=== PATIENT | female | born 1965 | race Two or more races ===

== ENCOUNTER 2020-01-20 01:50 | Emergency (ER) | payer BC ==
[~2020-01-20] VITALS: Ht 157.5 cm; Wt 82.1 kg
[2020-01-20] MEDS ORDERED: ASPIRIN 81 MG CHEW TAB PO ONE (03:00)
--- NOTE | 2020-01-20 03:09 | NUR ---
PT UP TO RESTROOM
[2020-01-20] MEDS ORDERED: ASPIRIN 81 MG CHEW TAB ONE (03:11)
--- NOTE | 2020-01-20 03:39 | Diagnostic Imaging Report ---
EXAMINATION: CXR 2 VIEW - HOPD INDICATION: ^SOB, UPPER CHEST/BACK PAIN COMPARISON: None FINDINGS: TUBES and LINES: None. LUNGS: Normal lung volumes. Lungs are clear. No consolidations. PLEURA: No pleural effusion or pneumothorax. HEART AND MEDIASTINUM: The cardiac silhouette within normal size limits. Right superior mediastinal soft tissue fullness with left tracheal deviation/compression BONES AND SOFT TISSUES: No acute osseous lesion. Soft tissues are unremarkable. UPPER ABDOMEN: No free air under the diaphragm. IMPRESSION: Right superior mediastinal soft tissue fullness with left tracheal deviation/compression, concerning for superior mediastinal mass, likely thyroid in origin/goiter. Signed by: Pancho Salinas DO on 01/20/2020 3:36 AM
--- NOTE | 2020-01-20 03:52 | NUR ---
PT RESTING QUIETLY WITH LIGHTS DIMMED.
--- NOTE | 2020-01-20 03:59 | NUR ---
INFORMED MD ALL TEST RESULTS COMPLETE AND PT WANTS TO GO HOME.
--- NOTE | 2020-01-20 04:02 | NUR ---
PT UP TO RESTROOM. NO OBVIOUS ACUTE DISTRESS NOTED AT THIS TIME
--- NOTE | 2020-01-20 04:05 | NUR ---
BACK TO RM 2, REPLACED ON MONITOR
--- NOTE | 2020-01-20 04:47 | NUR ---
PT UP TO RESTROOM. NO OBVIOUS ACUTE RESP DISTRESS NOTED. NO COMPLAINTS AT THIS TIME
--- NOTE | 2020-01-20 04:53 | NUR ---
PT RETURNED TO RM 2, PLACED ON MONITOR. PT ASKED TO HAVE HOB RAISED TO SITTING POSITION-DONE.
--- NOTE | 2020-01-20 06:15 | NUR ---
IN TALKING WITH PT. PT NOT WILLING TO BE ADMITTED. WISHES TO GO HOME.
[2020-01-20] MEDS ORDERED: CYCLOBENZAPRINE5 MG PO (06:22)
--- NOTE | 2020-01-20 06:31 | Emergency Department Note ---
History of Present Illnes History of Present Illness Chief Complaint: Respiratory History of Present Illness This is a 54 year old Other female . hief Complaint Comment PT STATES UPPER CHEST AND UPPER BACK PAIN FOR A WEEK. TONIGHT SOB. PT SPEAKING IN COMPLETE SENTENCES WITHOUT DIFF. ON ROOM AIR...PT STATES SAW HER PCP ON WEDNESDAY MORNING FOR SAME COMPLAINT, WAS GIVEN DECADRON AND PUT ON PREDNISONE 1 A DAY BUT NOT FEELING BETTER..PT ALSO STATES EKG DONE IN PCP OFFICE WAS NORMAL. WHEN ASKED PT STATES SHE WAS EXPOSED TO COVID LAST WEEK. patient anxious, Historian: Patient Arrival Mode: Car Onset (how long ago): day(s) (1) Location: throat Quality: dull Radiation: Denies non-radiation, Denies back, Denies neck, Denies extremity, Denies abdomen, Denies periumbilical, Denies flank, Denies proximal, Denies distal, Denies other Severity: mild Onset quality: gradual Duration (how long): day(s) (1) Timing of current episode: intermittent Progression: waxing and waning Chronicity: new Context: Denies recent illness, Denies recent surgery, Denies recent immobilization, Denies recent travel, Denies trauma/injury, Denies new medications, Denies hx of DVT/PE, Denies non-compliance w/ medications, Denies other Relieving factors: none Associated symptoms: Reports shortness of breath; Denies denies other symptoms, Denies confusion, Denies chest pain, Denies cough, Denies diaphoresis, Denies fever/chills, Denies headaches, Denies loss of appetite, Denies malaise, Denies nausea/vomiting, Denies rash, Denies seizure, Denies syncope, Denies weakness, Denies other Treatments prior to arrival: none Past Medical/Family History Physician Review I have reviewed the patient's past medical and family history. Any updates have been documented here. Past Medical History Recent Fever: No Clinical Suspicion of Infectio: No New/Unexplained Change in Ment: No Past Medical History: Hypertension Past Surgical History: Hysterectomy Social History Smoking Cessation: Never Smoker Alcohol Use: None Any Illegal Drug Use: No Physically hurt or threatened: No Other Any Pre-Existing Lines (PICC,: No Review of Systems Review of Systems Constitutional: Reports no symptoms EENTM: Reports no symptoms Cardiovascular: Reports as per HPI Respiratory: Reports as per HPI Gastrointestinal: Reports no symptoms Genitourinary: Reports no symptoms Musculoskeletal: Reports no symptoms Integumentary: Reports no symptoms Neurological: Reports no symptoms Psychological: Reports no symptoms Endocrine: Reports no symptoms Hematological/Lymphatic: Reports no symptoms Physical Exam Related Data Allergies: Coded Allergies: morphine (Verified Allergy, Unknown, NAUSEA AND THE REST OF STUFF, 01/20/20) Triage Vital Signs Vital Signs Date Time Temp Pulse Resp B/P (MAP) Pulse Ox O2 Delivery O2 Flow Rate FiO2 01/20/20 01:57 97.8 86 18 170/94 100 Room Air Vital signs reviewed: Yes Physical Exam CONSTITUTIONAL Constitutional: Present well-developed, Present well-nourished HENT HENT: Present normocephalic, Present atraumatic, Present oropharynx clear/moist, Present nose normal HENT L/R: Present left ext ear normal, Present right ext ear normal EYES Eyes: Reports PERRL, Reports conjunctivae normal NECK Neck: Present ROM normal PULMONARY Pulmonary: Present effort normal, Present breath sounds normal CARDIOVASCULAR Cardiovascular: Present regular rhythm, Present heart sounds normal, Present capillary refill normal, Present normal rate GASTROINTESTINAL Abdominal: Present soft, Present nontender, Present bowel sounds normal GENITOURINARY Genitourinary: Present exam deferred SKIN Skin: Present warm, Present dry MUSCULOSKELETAL Musculoskeletal: Present ROM normal NEUROLOGICAL Neurological: Present alert, Present oriented x 3, Present no gross motor or sensory deficits PSYCHOLOGICAL Psychological: Present mood/affect normal, Present judgement normal Results Laboratory Lab results reviewed: Yes Imaging Imaging results reviewed: Yes Procedures 12 Lead ECG Interpretation ECG Interpretation : ECG: ECG 1 Waste Treatment Operator: Interpreted by ED physician Date: Jan 20, 2020 Time: 02:21 Rhythm: sinus rhythm Rate: normal QRS axis: normal ST segments normal: Yes T waves normal: Yes Assessment & Plan Medical Decision Making MDM chest pain gerd patient refsed admission wants to go home, discussed all the risks with patient. Reassessment Reassessment time: 06:29 Reassessment better resolved Assessment & Plan Final Impression: (1) Chest pain Depart Disposition: HOME, SELF-CARE Last Vital Signs Date Time Temp Pulse Resp B/P (MAP) Pulse Ox O2 Delivery O2 Flow Rate FiO2 01/20/20 05:46 71 16 144/75 98 01/20/20 01:57 97.8 Room Air Home Meds Active Scripts Cyclobenzaprine Hcl (FLEXERIL) 5 Mg Tablet, 10 MG PO Q8H PRN for PAIN, #15 TAB 0 Refills Prov:EVANGELISTA ARGUETA MD 01/20/20 Medications in the ED Aspirin 324 mg ONCE ONCE PO Last administered on 01/20/20at 03:09; Admin Dose 324 MG; Start 01/20/20 at 03:00; Stop 01/20/20 at 03:01; Status UNV EVANGELISTA ARGUETA MD Jan 20, 2020 06:31
[2020-01-20] MEDS ORDERED: PEPCID20 MG PO (06:32)
[2020-01-20 06:42] VITALS: BP 144/85
== END 2020-01-20 06:40 | disposition home or self-care (01) ==
LOC: FSED 02:40
DX: R07.9 Chest pain, unspecified (principal); I10 Essential (primary) hypertension
CPT/HCPCS: 71046; 80053; 82553; 84484; 85025; 93005; 99284